=== PATIENT | female | born 1950 | race Caucasian/White ===

== ENCOUNTER → 2016-09-23 | Outpatient (CLI) | payer MEDICARE, OTHER ==
[~2016-09-23] MED LIST: DIOVAN HCT 12.51 TA2 PO; GLYBURIDE AND M1 TA2 PO; LEVOTHYROXIN0.112 M1 PO
--- NOTE | 2016-09-24 17:28 | RADIOLOGY REPORT PS360 ---
US BREAST-LT COMPLETE W/AXILLA COMPARISON: Additional views left breast 09/23/2016 HISTORY: Evaluation of asymmetric nodular densities on recent mammogram TECHNIQUE: Targeted ultrasound primarily upper outer and lower outer quadrants of the breast FINDINGS: There is an oval hypoechoic cystic-appearing lesion at the 2:00 position mid breast measuring 1.0 x 0.5 x 0.7 cm. This shows slight acoustic enhancement and likely is a small cyst is a second hypoechoic and possibly cystic lesion at the 4:00 position mid breast measuring 0.5 x 0.3 x 0.8 cm. This after may represent a collection of tiny microcysts adjacent to one another. There is no suspicious solid lesions seen. There are 2 normal-appearing nodes in the axilla. IMPRESSION: Probable benign-appearing cyst and possible tiny collection of microcysts, recommend the patient return for 6 month follow-up left mammogram and ultrasound to evaluate for interval stability.
--- NOTE | 2016-09-30 10:45 | RADIOLOGY REPORT PS360 ---
DIG MAMM-DX UNI A/VWS-LT W/CAD COMPARISON: Digital bilateral mammograms 09/09/2016 INDICATION: Evaluation for possible new asymmetric density left breast TECHNIQUE: Spot compression MLO and CC views and 90 degrees lateral view FINDINGS: Additional views reveal but there are 2 asymmetric densities a prior quadrant of the left breast. Both have fairly well-defined borders. Ultrasound examination showed both these lesions be due to cyst 1 which may be a collection of microcysts. There is no other abdomen I seen. There are fatty replaced nodes in the axilla. IMPRESSION: Benign-appearing asymmetric densities likely due to cyst, recommend a six-month follow-up left mammogram to sure interval stability along with follow-up ultrasound as indicated in the ultrasound report BI-RADS CATEGORY: 3_Probably Benign-Short Term F/U RECOMMENDED FOLLOWUP: 6M 6MONTH FOLLOW-UP (A letter has been sent to the patient regarding results of the study.)
== END ==
LOC: RAD 13:45
DX: R92.2 Inconclusive mammogram (principal)
CPT/HCPCS: G0206-LT

== ENCOUNTER → 2017-02-03 | Outpatient (CLI) | payer MEDICARE, OTHER ==
--- NOTE | 2017-02-16 09:46 | RADIOLOGY REPORT PS360 ---
DIG MAMM-DX UNI-LT W/CAD COMPARISON: 09/23/2016, 09/09/2016 INDICATION: Follow-up cyst aspiration ORDERING PHYSICIAN: Preston Kemp MD PATIENT AGE: 66 years TECHNIQUE: Standard images performed along with spot compression views and rolled views FINDINGS: The nodular density lateral aspect of the left breast at the 2:00 region is less apparent following the cyst aspiration. There is a persistent area of asymmetric density in the superior aspect of the left breast as seen on the MLO view but not identified in the cc view and millimeter related to an area of overlapping fibroglandular tissue. This also was not identified on ultrasound. Some of this could even be related to interval infiltration of lidocaine. Previously noted 9 mm nodule in the 2:00 region is less apparent. Benign-appearing nodules are present in the retroareolar region consistent with ductal ectasia as seen on ultrasound the same day. Left breast ultrasound: Persistent cystic areas are present in the retroareolar region consistent with ductal ectasia conforming to nodular opacity seen in the retroareolar region. IMPRESSION: Post aspiration mammogram shows probably benign findings. The nodule of original interest is smaller. There is an asymmetric density in the superior left breast seen only on the MLO view. Short-term mammographic follow-up is recommended in 3 months. BI-RADS CATEGORY: 3_Probably Benign-Short Term F/U RECOMMENDED FOLLOWUP: 3 month mammographic follow-up (A letter has been sent to the patient regarding results of the study.)
--- NOTE | 2017-02-16 09:48 | RADIOLOGY REPORT PS360 ---
US CYST ASPIRATION CLINICAL INDICATION: LT BREAST CYST ORDERING PHYSICIAN: Preston Kemp MD PATIENT AGE: 66 years COMPARISON: None TECHNIQUE: Following obtaining informed consent under aseptic conditions and local anesthesia with 1% lidocaine using sonographic guidance first, aspiration was performed of the left breast cyst at 2:00 without complications. Cytology: Negative for malignancy. Scattered apical and metaplasia and foam cells with a cystic background The cyst at 4:00 was then aspirated showing findings consistent with a benign cyst. IMPRESSION: Successful cyst aspiration at 2 and 4:00 showing benign findings
== END ==
LOC: RAD 01-27 13:00
PROC: 0H9U3ZX Drainage of Left Breast, Percutaneous Approach, Diagnostic (ICD-10-PCS; principal; 2017-02-03)
DX: R92.8 Other abnormal and inconclusive findings on diagnostic imaging of breast (principal); N63.20 Unspecified lump in the left breast, unspecified quadrant
CPT/HCPCS: G0206-LT